=== PATIENT | male | born 1980 ===

== ENCOUNTER 2017-08-11 18:42 | Emergency (ER) | payer OTHER ==
[2017-08-11 19:06] VITALS: BP 118/75; PULSE 82; RESP 16; TEMP 98.6; O2SAT 100
[2017-08-11] MEDS ORDERED: TDAP Vaccine 0.5 mL Syr IM ONE (19:32)
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
[2017-08-11] MEDS ORDERED: Lidocaine 1% Inj (20ml) ONE (19:56)
[2017-08-11] MEDS ORDERED: Bacitracin 500 Units/gm Oint Foilpak UD ONE (19:56)
== END 2017-08-11 21:09 | disposition home or self-care (01) ==
LOC: ED 18:42
DX: S61.412A Laceration without foreign body of left hand, initial encounter (principal); W25.XXXA Contact with sharp glass, initial encounter; Y93.G1 Activity, food preparation and clean up; Y92.009 Unspecified place in unspecified non-institutional (private) residence as the place of occurrence of the external cause; Z23 Encounter for immunization